=== PATIENT | male | born 1960 | race Hispanic/Latino ===

== ENCOUNTER 2020-12-11 13:34 | Emergency (ER) | payer MEDICARE ==
[~2020-12-11] VITALS: Ht 167.6 cm; Wt 84.4 kg
[~2020-12-11 13:34] MED LIST: CLINDAMYCIN HC150 MG PO; METFORMIN HCL500 MG PO; NAPROXEN250 MG PO; PRAVASTATIN SOD20 MG PO; SULFAMETHOXAZO1 EAC1 PO; ULTRAM50 MG PO; VASOTEC5 MG PO
== END 2020-12-11 14:51 | disposition home or self-care (01) ==
LOC: ER 13:45
DX: L03.312 Cellulitis of back [any part except buttock and flank] (principal); R50.9 Fever, unspecified; E11.9 Type 2 diabetes mellitus without complications; E78.5 Hyperlipidemia, unspecified; E78.00 Pure hypercholesterolemia, unspecified
CPT/HCPCS: 99283